=== PATIENT | female | born 1950 | race Caucasian/White ===

== ENCOUNTER → 2019-06-23 10:50 | Outpatient (BNVA) | payer MEDICARE, SELFPAY | PROVIDERS: PCP Nurse Practitioner Family; Visit Provider Nurse Practitioner | DX: Z76.89 Persons encountering health services in other specified circumstances (principal) | CPT/HCPCS: 99213 ==

== ENCOUNTER → 2019-09-13 12:46 | Outpatient (BNVA) | payer MEDICARE, SELFPAY | PROVIDERS: PCP Nurse Practitioner Family; Visit Provider Anesthesiology | DX: G89.29 Other chronic pain (principal); M54.6 Pain in thoracic spine; Z79.891 Long term (current) use of opiate analgesic | CPT/HCPCS: 99213; 99214 ==

== ENCOUNTER → 2019-09-15 15:05 | Outpatient (BNVA) | payer MEDICARE, SELFPAY | PROVIDERS: PCP Nurse Practitioner Family; Visit Provider Nurse Practitioner Family | DX: I10 Essential (primary) hypertension (principal); M25.561 Pain in right knee; M81.0 Age-related osteoporosis without current pathological fracture; S70.11XA Contusion of right thigh, initial encounter; X58.XXXA Exposure to other specified factors, initial encounter | CPT/HCPCS: 73562; 80053; 80061; 84443; 85025 ==

== ENCOUNTER → 2019-12-06 13:00 | Outpatient (BNVA) | payer MEDICARE, SELFPAY | PROVIDERS: PCP Nurse Practitioner Family; Visit Provider Nurse Practitioner Family | DX: M54.6 Pain in thoracic spine (principal) | CPT/HCPCS: 72072 ==

== ENCOUNTER → 2019-12-20 10:49 | Outpatient (BNVA) | payer MEDICARE, SELFPAY | PROVIDERS: PCP Nurse Practitioner Family; Visit Provider Nurse Practitioner Family | DX: R07.81 Pleurodynia (principal) | CPT/HCPCS: 71100 ==

== ENCOUNTER → 2020-01-19 15:17 | Outpatient (BNVA) | payer MEDICARE, SELFPAY | PROVIDERS: PCP Nurse Practitioner Family; Visit Provider Nurse Practitioner Family | DX: M25.561 Pain in right knee (principal); G89.29 Other chronic pain; M81.8 Other osteoporosis without current pathological fracture | CPT/HCPCS: 73562 ==

== ENCOUNTER 2020-01-20 13:11 | Outpatient (CLI) | payer MEDICARE, SELFPAY ==
--- NOTE | 2020-01-20 14:00 | MM_ITS ---
WS: [id number] BILATERAL DIGITAL SCREENING MAMMOGRAPHY WITH CAD CLINICAL INFORMATION: screening mammo HISTORY: Screening mammogram. No current complaints. COMPARISON: 4 17,015 TECHNIQUE: Bilateral CC and MLO views. FINDINGS: Scattered fibroglandular densities bilaterally. No suspicious focal mass, asymmetry, calcifications, or architectural distortion. No evidence of malignancy. A few stable intramammary lymph nodes. Vascul ar calcification. MM/[place] [id number] IMPRESSION: BI-RADS: 2-Benign FOLLOW UP: 1 Year Follow-up Recommend return to annual screening mammography.
--- NOTE | 2020-01-20 14:16 | XR_ITS ---
WS: [id number] Bone mineral density performed on a Training Amigo[employer], 01/20/2020 Clinical data: osteoporosis Comparison study: DEXA scan, 04/21/2017. Findings: The first 4 lumbar vertebral bodies demonstrated the bone mineral density of 0.936 g/cm2 for a young adult T score of -2.0. Measurement of the left hip reveals a bone mineral density of 0.680 g/cm2 with a young adult T score of -2.6. Measurement of the right hip reveals the bone mineral density of 0.655 g/cm2 for young adult T score of -2.8. XR/XR DEXA axial skeleton* [id number] Impression: 1. Osteopenia of the lumbar spine with slight increase in bone mineral density compared to prior study. 2. Osteoporosis of the left hip with slight improvement in bone mineral density from prior study. 3. Osteoporosis of the right hip with slight improvement in bone mineral densit y from the prior study.
== END 2020-01-20 13:12 | disposition home or self-care (01) ==
PROVIDERS: PCP Nurse Practitioner Family; Visit Provider Nurse Practitioner Family
DX: Z12.31 Encounter for screening mammogram for malignant neoplasm of breast (principal); M81.0 Age-related osteoporosis without current pathological fracture; M85.89 Other specified disorders of bone density and structure, multiple sites
CPT/HCPCS: 77067; 77080

== ENCOUNTER → 2020-02-08 08:10 | Outpatient (BNVA) | payer MEDICARE, SELFPAY | PROVIDERS: PCP Nurse Practitioner Family; Visit Provider Anesthesiology | DX: G89.29 Other chronic pain (principal); M54.6 Pain in thoracic spine; Z79.891 Long term (current) use of opiate analgesic | CPT/HCPCS: 99212; 99214 ==

== ENCOUNTER → 2020-02-09 10:36 | Outpatient (BNVA) | payer MEDICARE, SELFPAY | PROVIDERS: PCP Nurse Practitioner Family; Referring Provider Nurse Practitioner Family; Visit Provider Specialist | DX: M25.561 Pain in right knee (principal); G89.29 Other chronic pain | CPT/HCPCS: 73560; 73565 ==

== ENCOUNTER → 2020-02-14 14:39 | Outpatient (BNVA) | payer MEDICARE, SELFPAY | PROVIDERS: PCP Nurse Practitioner Family; Referring Provider Specialist; Visit Provider Internal Medicine | DX: E04.1 Nontoxic single thyroid nodule (principal); I10 Essential (primary) hypertension; M81.0 Age-related osteoporosis without current pathological fracture | CPT/HCPCS: 99204 ==

== ENCOUNTER 2020-02-15 06:00 | Outpatient (RCR) | payer MEDICARE, SELFPAY | END 2020-02-27 23:59 | disposition home or self-care (01) | LOC: TPT 06:00 | PROVIDERS: PCP Nurse Practitioner Family; Referring Provider Specialist; Visit Provider Specialist | DX: M17.11 Unilateral primary osteoarthritis, right knee (principal) | CPT/HCPCS: 97161 ==

== ENCOUNTER 2020-03-13 13:39 | Outpatient (CLI) | payer MEDICARE, SELFPAY ==
--- NOTE | 2020-03-13 14:15 | US_ITS ---
WS: [id number] ULTRASOUND THYROID TECHNIQUE: Ultrasound of the thyroid. CLINICAL INFORMATION: thyroid nodule COMPARISON: FINDINGS: Thyroid: Right and left thyroid lobes are normal in size and echotexture. Multiple hypoechoic thyroid nodules similar in appearance to November 05, 2017. Largest left thyroid nodule measures 3.0 x 2.2 x 1 .8 cm this is similar in appearance to Right thyroid lobe: 3.8 cm x 1.8 cm x 1.8 cm Left thyroid lobe: 4.7 cm x 2.3 cm x 2.9 cm. Isthmus: 0.4 mm. Cervical lymphadenopathy: None. US/US thyroid [id number] IMPRESSION: 1. Again seen are multiple hypoechoic thyroid nodules similar to 2018. 2. Largest left thyroid nodule measures 3.0 x 2.2 x 1.8 cm this is similar in appearance to
== END 2020-03-13 13:40 | disposition home or self-care (01) ==
LOC: RAD 13:44
PROVIDERS: PCP Nurse Practitioner Family; Visit Provider Internal Medicine
DX: E04.2 Nontoxic multinodular goiter (principal)
CPT/HCPCS: 76536

== ENCOUNTER → 2020-05-29 13:17 | Outpatient (BNVA) | payer MEDICARE, SELFPAY | PROVIDERS: PCP Nurse Practitioner Family; Visit Provider Anesthesiology | DX: G89.29 Other chronic pain (principal); M54.6 Pain in thoracic spine; M25.561 Pain in right knee; Z79.891 Long term (current) use of opiate analgesic | CPT/HCPCS: 99214 ==

== ENCOUNTER → 2020-08-31 14:34 | Outpatient (BNVA) | payer MEDICARE, SELFPAY | PROVIDERS: PCP Nurse Practitioner Family; Visit Provider Nurse Practitioner Family | DX: J02.9 Acute pharyngitis, unspecified (principal); R50.9 Fever, unspecified; J32.9 Chronic sinusitis, unspecified; L25.9 Unspecified contact dermatitis, unspecified cause; K52.9 Noninfective gastroenteritis and colitis, unspecified; Z68.27 Body mass index [BMI] 27.0-27.9, adult | CPT/HCPCS: 85025; 87400; 87880 ==

== ENCOUNTER → 2020-10-11 09:13 | Outpatient (BNVA) | payer MEDICARE, MEDICAID, SELFPAY | PROVIDERS: PCP Nurse Practitioner Family; Visit Provider Nurse Practitioner | DX: G89.29 Other chronic pain (principal); M25.561 Pain in right knee; M54.6 Pain in thoracic spine; Z79.891 Long term (current) use of opiate analgesic | CPT/HCPCS: 99212 ==

== ENCOUNTER 2020-11-16 09:31 | Emergency (ER) | payer MEDICARE, MEDICAID, SELFPAY ==
[2020-11-16 09:50] VITALS: BP 131/70; PULSE 60; RESP 19; TEMP 37.1; O2SAT 94
[2020-11-16 10:07] VITALS: BP 123/84; PULSE 71; RESP 16; O2SAT 97
--- NOTE | 2020-11-16 10:29 | US_ITS ---
WS: [id number] ULTRASOUND ABDOMEN LIMITED CLINICAL INFORMATION: RUQ abd PAIN COMPARISON: None. FINDINGS: Liver Size: Mild hepatosplenomegaly Craniocaudal length: 15.0 cm. Echogenicity: Diffuse fatty infiltration Surface nodularity: None. Mass (size and location): None. Bile ducts Intrahepatic ducts: Normal. Common bile duct diameter: 0.6 cm. Gallbladder Normal. Gallstones: None. Gallbladder sludge: None. Gallbladder wall thickening: None. Pericholecystic fluid: None. Sonographic Rivera sign: Absent. Pancreas Normal as visualized. Right kidney: Normal. Hydronephrosis: None. Size: 9.3 cm x 4.8 cm x 4.2 cm. Abdominal aorta and IVC Visualized portions are normal. Ascites: None. US/US gall bladder [id number] IMPRESSION: 1. Hepatomegaly with diffuse fatty infiltration. 2. Normal gallbladder. 3. No hydronephrosis in right kidney. 4. Normal common bile duct.
--- NOTE | 2020-11-16 10:32 | ECG_ITS ---
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 Measurements Intervals [place] Rate: 54 P: -19 WA: 135 QRS: -18 QRSD: 91 T: 41 QT: 397 QTc: 380 Interpretive Statements SINUS BRADYCARDIA Compared to ECG 07/22/2014 22:08:40 No significant changes Electronically Signed On 11-16-2020 19:31:49 CDT by Lucy Alexis M.D. [email or web address]
--- NOTE | 2020-11-16 10:43 | ED_ITS ---
HPI - Back Pain/Injury General: Chief Complaint: Back Pain/Injury Stated Complaint: Pain in upper right abd, pain in shoulder blade Time Seen by Provider: 11/16/20 10:14 Source: patient Mode of arrival: ambulatory History of Present Illness: HPI Narrative: RUQ/RIGHT MID THORACIC PAIN Onset (ago): day(s) (4 days) Timing: intermittent Associated symptoms: Reports abdominal pain (RUQ); Deny nausea Review of Systems General: Reports: 10 or more systems reviewed and unremarkable except in HPI and below GI: Reports: abdominal pain (RUQ); Denies: nausea Musc: Reports: back pain [facility] ED PFSH: Medical History Chronic mitral valve regurgitation Chronic thoracic back pain Encounter for long-term use of opiate analgesic Essential (primary) hypertension Generalized epilepsy History of hepatitis Opioid contract exists Osteoporosis Pleurodynia Surgical History History of tonsillectomy and adenoidectomy S/p bilateral carpal tunnel release Status post wrist surgery left wrist 2008 Family History Mother Hypertension Osteoporosis Social History Smoking and tobacco status: never smoked Second hand smoke exposure: No Alcohol intake: never Caregiver/support person: No Lives independently: Yes Marital status: / service: No Current occupational status: retired History of recent travel: No Current gender identity: Female Physical Exam GI: COMMON NORMALS: Soft to palpation INSPECTION: Yes normal to inspection AUSCULTATION: Yes normoactive bowel sounds PALPATION: Yes Soft to palpation and Yes Tenderness to palpation present (GI) Details: RUQ Back/Pelvis: BACK IMAGE (FEMALE): 1. R flank tenderness Course ED course: Pt presents to ER with complaints of RUQ/R flank pain for 4 days. It is cyclic and begins in morning after waking and lasts until 4pm. It is better when she lays down to sleep. Gallbladder still present and food does seem to worsen her symptoms. We will do GB US and labs. Denies pain meds. Reevaluation(s): Reevaluation #1: Pt US is negative for gallstones or blockages. Amylase and lipase as well as WBC are normal. Pt urine is clean with no RBCs. Due to her hx of thoracic back pain it is likely this is musculosketelal. We will proceed with DC with muscle relaxers and steroids. Return for any worsening in pain. Time: 13:49 Vital Signs: Vital signs: Vital Signs Temperature 98.8 F 11/16/20 09:50 Pulse Rate 60 11/16/20 12:40 Respiratory Rate 16 11/16/20 12:40 Blood Pressure 117/67 11/16/20 12:40 Pulse Oximetry 96 11/16/20 12:40 MDM - Back Pain/Injury Lab Data: Labs: Lab Results 11/16/20 11/16/20 11/16/20 Range/Units 10:54 10:54 10:54 WBC 9.6 (4.0-10.0) 10^3/ uL RBC 4.72 (4.1-5.3) 10^6/u L Hgb 14.4 (11.5-15.3) g/dL Hct 44.2 (37.0-47.0) % MCV 93.6 (81-99) fl MCH 30.5 (28.0-34.0) pg MCHC 32.6 (30.0-36.0) g/dL RDW 12.9 (12.1-15.1) % Plt Count 286 (130-400) 10^3/c mm MPV 10.4 (7.4-10.4) fL Neut % (Auto) 68.1 % Lymph % (Auto) 20.7 % [place] % (Auto) 8.9 % Eos % (Auto) 1.0 % Baso % (Auto) 0.9 % Neut # (Auto) 6.53 (1.8-7.7) 10^3/u L Lymph # (Auto) 2.0 (0.8-4.8) 10^3/u L [place] # (Auto) 0.9 (0.2-0.9) 10^3/u L Eos # (Auto) 0.1 (0.0-0.8) 10^3/u L Baso # (Auto) 0.1 (0.0-0.1) 10^3/u L Nucleated RBC % (a uto) 0 % Nucleated RBCs # 0.0 /100WBC Sodium 138 (136-145) mmol/L Potassium 4.8 (3.5-5.1) mmol/L Chloride 103 (98-107) mmol/L Carbon Dioxide 22 (22-29) mmol/L Anion Gap 17.8 (5-19) BUN 26 H (8-23) mg/dL Creatinine 0.8 (0.5-0.9) mg/dL GFR Calculation Not Reportable Glucose 95 (65-115) mg/dL Calculated Osmolal ity 291 (285-295) mOsm/k g Calcium 9.6 (8.5-10.5) mg/dL Total Bilirubin 0.4 (0.15-1.2) mg/dL AST 17 (0-32) U/L ALT 20 (0-33) U/L Alkaline Phosphata se 75 (35-105) IU/L Total Protein 7.5 (6.6-8.7) g/dL Albumin 4.2 (3.5-5.2) g/dL Globulin 3.3 (1.3-4.6) g/dL Amylase 51 (28-100) U/L Lipase 34 (13-60) U/L Urine Color (Yellow) Urine Appearance (CLEAR) Urine pH (5-7) Ur Specific Gravit y (1.005-1.030) Urine Protein (Negative) Urine Glucose (UA) (Normal) Urine Ketones (Negative) Urine Blood (Negative) Urine Nitrate (Negative) Urine Bilirubin (Negative) Urine Urobilinogen (Negative) mg/dL Ur Leukocyte Brooke ase (Negative) 11/16/20 Range/Units 12:23 WBC (4.0-10.0) 10^3/ uL RBC (4.1-5.3) 10^6/u L Hgb (11.5-15.3) g/dL Hct (37.0-47.0) % MCV (81-99) fl MCH (28.0-34.0) pg MCHC (30.0-36.0) g/dL RDW (12.1-15.1) % Plt Count (130-400) 10^3/c mm MPV (7.4-10.4) fL Neut % (Auto) % Lymph % (Auto) % [place] % (Auto) % Eos % (Auto) % Baso % (Auto) % Neut # (Auto) (1.8-7.7) 10^3/u L Lymph # (Auto) (0.8-4.8) 10^3/u L [place] # (Auto) (0.2-0.9) 10^3/u L Eos # (Auto) (0.0-0.8) 10^3/u L Baso # (Auto) (0.0-0.1) 10^3/u L Nucleated RBC % (a uto) % Nucleated RBCs # /100WBC Sodium (136-145) mmol/L Potassium (3.5-5.1) mmol/L Chloride (98-107) mmol/L Carbon Dioxide (22-29) mmol/L Anion Gap (5-19) BUN (8-23) mg/dL Creatinine (0.5-0.9) mg/dL GFR Calculation Glucose (65-115) mg/dL Calculated Osmolal ity (285-295) mOsm/k g Calcium (8.5-10.5) mg/dL Total Bilirubin (0.15-1.2) mg/dL AST (0-32) U/L ALT (0-33) U/L Alkaline Phosphata se (35-105) IU/L Total Protein (6.6-8.7) g/dL Albumin (3.5-5.2) g/dL Globulin (1.3-4.6) g/dL Amylase (28-100) U/L Lipase (13-60) U/L Urine Color Yellow (Yellow) Urine Appearance Clear (CLEAR) Urine pH 5 (5-7) Ur Specific Gravit y 1.015 (1.005-1.030) Urine Protein Neg (Negative) Urine Glucose (UA) Norm (Normal) Urine Ketones Negative (Negative) Urine Blood Neg (Negative) Urine Nitrate Negative (Negative) Urine Bilirubin Neg (Negative) Urine Urobilinogen Norm (Negative) mg/dL Ur Leukocyte Brooke ase Negative (Negative) Imaging Data^: US: Radiologist's impression: [address] [address] Ultrasound Report Signed Patient: Rukhsana Hernandez Unit #: [id number] : 1950 Age/Sex: 70 / F ADM Date: 11/16/20 Loc: ER Room/Bed: Attending Dr: Ordering Provider/Ordering MD: Juliet Melgar NP Date of Service: 11/16/20 Procedure(s): US gall bladder [id number] Accession Number(s): [id number] Report Number: [id number] WS: [id number] ULTRASOUND ABDOMEN LIMITED CLINICAL INFORMATION: RUQ abd PAIN COMPARISON: None. FINDINGS: Liver Size: Mild hepatosplenomegaly Craniocaudal length: 15.0 cm. Echogenicity: Diffuse fatty infiltration Surface nodularity: None. Mass (size and location): None. Bile ducts Intrahepatic ducts: Normal. Common bile duct diameter: 0.6 cm. Gallbladder Normal. Gallstones: None. Gallbladder sludge: None. Gallbladder wall thickening: None. Pericholecystic fluid: None. Sonographic Rivera sign: Absent. Pancreas Normal as visualized. Right kidney: Normal. Hydronephrosis: None. Size: 9.3 cm x 4.8 cm x 4.2 cm. Abdominal aorta and IVC Visualized portions are normal. Ascites: None. US/US gall bladder [id number] IMPRESSION: 1. Hepatomegaly with diffuse fatty infiltration. 2. Normal gallbladder. 3. No hydronephrosis in right kidney. 4. Normal common bile duct. Dictated By: Corwin Castro MD Signed By: Corwin Castro MD Signed Date/Time: 11/16/20 1146 DD/ 1142 Discharge Plan Discharge Condition: Stable Prescriptions: New methylprednisolone [Methylpred DP] 4 mg tablets,dose pack See Rx Instructions .ROUTE .COMPLEX Qty: 21 RF: 0 diclofenac potassium 50 mg tablet 50 mg PO DAILY Qty: 20 RF: 0 No Action diclofenac sodium [Voltaren] 1 % gel 4 gm TOPICAL QID Qty: 100 RF: 0 potassium chloride 20 mEq tablet extended release 20 meq PO DAILY RF: 0 [id number] Tablet 1 tab PO DAILY RF: 0 calcium carbonate [Antacid (calcium carbonate)] 200 mg calcium (500 mg) tablet,chewable 200 mg PO TID RF: 0 aspirin [Adult Low Dose Aspirin] 81 mg tablet,delayed release (DR/EC) 81 mg PO ONCE RF: 0 omeprazole 20 mg capsule,delayed release(DR/EC) 20 mg PO ONCE RF: 0 multivitamin Capsule 1 cap PO QAM RF: 0 magnesium 250 mg tablet 250 mg PO .1 day RF: 0 dimenhydrinate 50 mg tablet 50 mg PO .1 day RF: 0 tizanidine 4 mg tablet 4 mg PO TID PRNRF: 0 meclizine 25 mg tablet 25 mg PO BID PRN (Reason: dizziness) Qty: 30 RF: 0 triamcinolone acetonide 0.1 % cream 1 applic TOPICAL BID 14 Days Qty: 80 RF: 1 ondansetron 4 mg tablet,disintegrating 4 mg PO Q6H PRN (Reason: nausea and vomiting) Qty: 20 RF: 0 hydrocodone-acetaminophen 7.5-325 mg tablet 1 tab PO BID PRN (Reason: pain) 30 Days Qty: 60 RF: 0 alendronate 70 mg tablet See Rx Instructions .ROUTE .COMPLEX Qty: 4 RF: 4 amlodipine 5 mg tablet See Rx Instructions .ROUTE .COMPLEX Qty: 30 RF: 2 meloxicam 15 mg tablet See Rx Instructions .ROUTE .COMPLEX Qty: 30 RF: 2 cefdinir 300 mg capsule 300 mg PO BID Qty: 14 RF: 0 hydrocodone-acetaminophen 7.5-325 mg tablet 1 tab PO BID PRN (Reason: pain) 23 Days Qty: 46 RF: 0 Referrals: Kaye Pope FNP [Primary Care Provider] - Discharge Diet: Usual diet Discharge Activity: Increase activity as tolerated Activity Restrictions/Additional Instructions: Return to ER with any new or worsening symptoms. Coding Level of Care Code ED [employer]uling [employer] for Meghna Byrne Exam Problem Focused
[2020-11-16] MEDS: ondansetron 2 mg/ML SDV 2 mL 4 MG IVP (10:55)
[2020-11-16] MEDS: ketorolac 30 mg/mL INJ IVP (10:55)
[2020-11-16 11:26] LABS: Amylase 51 U/L (28-100); Lipase 34 U/L (13-60)
[2020-11-16 12:40] VITALS: BP 117/67; PULSE 60; RESP 16; O2SAT 96
[2020-11-16 12:52] LABS: Add Urine Microscopic? NO; Charge for UA Resulting for Rev
[2020-11-16 12:59] LABS: Basophils # 0.1 10^3/uL (0.0-0.1); Basophils % 0.9 %; Eosinophils # 0.1 10^3/uL (0.0-0.8); Hematocrit 44.2 % (37.0-47.0); Hemoglobin 14.4 g/dL (11.5-15.3); Lymphocytes % 20.7 %; Mean Corpuscular HGB Conc 32.6 g/dL (30.0-36.0); Mean Corpuscular Hemoglobin 30.5 pg (28.0-34.0); Mean Corpuscular Volume 93.6 fl (81-99); Mean Platelet Volume 10.4 fL (7.4-10.4); Monocytes # 0.9 10^3/uL (0.2-0.9); Monocytes % 8.9 %; Neutrophils # 6.53 10^3/uL (1.8-7.7); Neutrophils % 68.1 %; Nucleated Red Blood Cells % 0 %; Platelet Count 286 10^3/cmm (130-400); Red Blood Count 4.72 10^6/uL (4.1-5.3); Red Cell Distribution Width 12.9 % (12.1-15.1); White Blood Count 9.6 10^3/uL (4.0-10.0)
[2020-11-16 13:17] LABS: Alanine Aminotransferase 20 U/L (0-33); Albumin Level 4.2 g/dL (3.5-5.2); Alkaline Phosphatase 75 IU/L (35-105); Anion Gap 17.8 (5-19); Aspartate Amino Transferase 17 U/L (0-32); Blood Urea Nitrogen 26 mg/dL (8-23); Calcium 9.6 mg/dL (8.5-10.5); Carbon Dioxide 22 mmol/L (22-29); Chloride 103 mmol/L (98-107); Globulin 3.3 g/dL (1.3-4.6); Glucose 95 mg/dL (65-115); Osmolality Calculated 291 mOsm/kg (285-295); Potassium 4.8 mmol/L (3.5-5.1); Sodium 138 mmol/L (136-145); Total Bilirubin 0.4 mg/dL (0.15-1.2); Total Protein 7.5 g/dL (6.6-8.7)
[2020-11-16 13:31] LABS: Bilirubin Urine Neg (Negative); Blood Urine Neg (Negative); Glucose Urine UA Norm (Normal); Ketones Urine Negative (Negative); Leukocyte Esterase Urine Negative (Negative); Nitrate Urine Negative (Negative); Protein Urine Neg (Negative); Specific Gravity, Urine 1.015 (1.005-1.030); Urine Appearance Clear (CLEAR); Urine Color Yellow (Yellow); Urobilinogen Urine Norm (Negative); pH Urine 5 (5-7)
[2020-11-16 14:05] VITALS: BP 123/73; PULSE 59; RESP 16; O2SAT 97
== END 2020-11-16 14:07 ==
PROVIDERS: Emergency Provider Nurse Practitioner Family; PCP Nurse Practitioner Family
DX: R10.9 Unspecified abdominal pain (principal); M25.511 Pain in right shoulder; Z79.82 Long term (current) use of aspirin; I10 Essential (primary) hypertension
CPT/HCPCS: 76705; 80053; 81003; 82150; 83690; 85025; 93005; 96374; 96375; 99283; J1885; J2405

== ENCOUNTER → 2020-12-05 14:42 | Outpatient (BNVA) | payer MEDICARE, MEDICAID, SELFPAY | PROVIDERS: PCP Nurse Practitioner Family; Visit Provider Anesthesiology | DX: G89.29 Other chronic pain (principal); M54.6 Pain in thoracic spine; M25.561 Pain in right knee; Z79.891 Long term (current) use of opiate analgesic | CPT/HCPCS: 99214 ==

== ENCOUNTER 2021-01-21 14:41 | Outpatient (CLI) | payer MEDICARE, MEDICAID, SELFPAY ==
--- NOTE | 2021-01-21 15:00 | US_ITS ---
WS: [id number] THYROID ULTRASOUND HISTORY: thyroid nodule COMPARISON: 03/13/2020 and 11/05/2017 Right lobe: 1.7 cm x 1.5 cm x 4.2 cm (w x ap x l). Volume: 5.6 cm3. Normal size gland. There are a few scattered subcentimeter hypoechoic nodules. Similar to the prior s tudy. No increased vascularity. No adenopathy. Left lobe: 2.3 cm x 2.6 cm x 3.3 cm (w x ap x l). Volume: 10.2 cm3. Enlarged gland with a hyperechoic nodule which is ill-defined in the mid to lower pole of the thyroid . This nodule measures 1.9 x 1.5 x 3.3 cm and is hyperechoic. As per history this nodule has been pre viously biopsied and was benign. Isthmus: 0.3 cm. US/US thyroid [id number] IMPRESSION: 1. Hyperechoic LEFT thyroid nodule has not significantly increased in size sin ce 03/13/2020. By history this nodule has undergone a prior biopsy and was jaswant gn. 2. No enlarging or suspicious nodules.
== END 2021-01-21 14:42 | disposition home or self-care (01) ==
LOC: RAD 14:49
PROVIDERS: PCP Nurse Practitioner Family; Visit Provider Internal Medicine
DX: E04.1 Nontoxic single thyroid nodule (principal)
CPT/HCPCS: 76536

== ENCOUNTER → 2021-01-30 09:54 | Outpatient (BNVA) | payer MEDICARE, MEDICAID, SELFPAY | PROVIDERS: PCP Nurse Practitioner Family; Visit Provider Anesthesiology | DX: G89.29 Other chronic pain (principal); M54.6 Pain in thoracic spine; Z79.891 Long term (current) use of opiate analgesic | CPT/HCPCS: 99213 ==

== ENCOUNTER → 2021-02-15 09:48 | Outpatient (BNVA) | payer MEDICARE, MEDICAID, SELFPAY | PROVIDERS: PCP Nurse Practitioner Family; Visit Provider Internal Medicine | DX: E04.1 Nontoxic single thyroid nodule (principal); M81.0 Age-related osteoporosis without current pathological fracture | CPT/HCPCS: 99213 ==

== ENCOUNTER → 2021-03-06 11:47 | Outpatient (BNVA) | payer MEDICARE, MEDICAID, SELFPAY | PROVIDERS: PCP Nurse Practitioner Family; Visit Provider Family Medicine | DX: M25.561 Pain in right knee (principal); I10 Essential (primary) hypertension; K21.9 Gastro-esophageal reflux disease without esophagitis; M54.6 Pain in thoracic spine; Z23 Encounter for immunization | CPT/HCPCS: 80053; 80061; 84443; 85025 ==

== ENCOUNTER → 2021-04-08 11:50 | Outpatient (BNVA) | payer MEDICARE, MEDICAID, SELFPAY | PROVIDERS: PCP Nurse Practitioner Family; Visit Provider Nurse Practitioner Family | DX: M25.511 Pain in right shoulder (principal); M19.011 Primary osteoarthritis, right shoulder | CPT/HCPCS: 73030 ==

== ENCOUNTER 2021-06-06 10:09 | Outpatient (CLI) | payer MEDICARE, MEDICAID, SELFPAY ==
--- NOTE | 2021-06-06 10:20 | MR_ITS ---
WS: [id number] MRI RIGHT SHOULDER NONCONTRAST TECHNIQUE: Sagittal T2, coronal T1, T2 and proton density imaging. Axial gradient PDE imaging. CLINICAL INFORMATION: M25.511 - Pain in right shoulder COMPARISON: None. FINDINGS: Moderate degenerative arthritis AC joint with hypertrophic spurring. Mild downsloping acromion with m ild narrowing of the subacromial space. Impingement on the distal supraspinatus. Fluid and edema in t he AC joint with synovial thickening. Chronic thinning of the distal supraspinatus with tendinopathy. Normal infraspinatus. Small amount of subacromial/subdeltoid fluid. Normal teres minor. Normal subsc apularis. Normal biceps tendon in the bicipital groove. Mild degenerative fraying of the glenoid labrum. Hypert rophic changes at the greater tuberosity. T2 hyperintensity with irregularity involving the intra-art icular biceps tendon compatible with chronic partial tear with tendinopathy MR/MR shoulder RT wo con* [id number] IMPRESSION: 1. Moderate degenerative arthritis AC joint with mild edema and synovial thick ening. Mild downsloping acromion impinges on the distal supraspinatus. 2. Chronic thinning of the supraspinatus with tendinopathy. 3. Rotator cuff is intact. No high-grade tears 4. T2 hyperintensity with irregularity involving the intra-articular biceps te ndon compatible with chronic partial tear with tendinopathy 5. Normal biceps tendon in the bicipital groove. 6. Degenerative fraying of the glenoid labrum.
== END 2021-06-06 10:10 | disposition home or self-care (01) ==
LOC: RAD 10:13
PROVIDERS: PCP Family Medicine; Visit Provider Nurse Practitioner Family
DX: M19.011 Primary osteoarthritis, right shoulder (principal); R60.0 Localized edema
CPT/HCPCS: 73221

== ENCOUNTER → 2021-08-14 07:48 | Outpatient (BNVA) | payer MEDICARE, MEDICAID, SELFPAY | PROVIDERS: PCP Family Medicine; Referring Provider Nurse Practitioner Family; Visit Provider Specialist | DX: M75.81 Other shoulder lesions, right shoulder (principal); M19.011 Primary osteoarthritis, right shoulder; M25.511 Pain in right shoulder | CPT/HCPCS: 73030; 99213 ==

== ENCOUNTER 2021-11-11 09:36 | Emergency (ER) | payer MEDICARE, MEDICAID, SELFPAY ==
[2021-11-11] VITALS (7 sets, daily range): BP systolic 134–173; BP diastolic 73–103; PULSE 83–97; RESP 12–20; O2SAT 93–97; BMI 26.5
[2021-11-11 10:05] LABS: Basophils % 0.6 %; Hemoglobin 13.3 g/dL (11.5-15.3); Lymphocytes # 0.3 10^3/uL (0.8-4.8); Lymphocytes % 9.3 %; Mean Corpuscular HGB Conc 32.4 g/dL (30.0-36.0); Mean Corpuscular Hemoglobin 30.1 pg (28.0-34.0); Mean Corpuscular Volume 92.8 fl (81-99); Mean Platelet Volume 10.4 fL (7.4-10.4); Monocytes # 0.8 10^3/uL (0.2-0.9); Monocytes % 22.7 %; Neutrophils % 66.8 %; Nucleated Red Blood Cells % 0 %; Platelet Count 165 10^3/cmm (130-400); Red Blood Count 4.42 10^6/uL (4.1-5.3); Red Cell Distribution Width 12.7 % (12.1-15.1); White Blood Count 3.4 10^3/uL (4.0-10.0)
[2021-11-11 10:29] LABS: Alanine Aminotransferase 27 U/L (0-33); Albumin Level 3.9 g/dL (3.5-5.2); Alkaline Phosphatase 64 U/L (35-105); Anion Gap 18.3 (5-19); Aspartate Amino Transferase 26 U/L (0-32); Blood Urea Nitrogen 10 mg/dL (8-23); Calcium 7.8 mg/dL (8.5-10.5); Carbon Dioxide 21 mmol/L (22-29); Chloride 105 mmol/L (98-107); Globulin 2.5 g/dL (1.3-4.6); Glucose 103 mg/dL (65-115); Osmolality Calculated 291 mOsm/kg (285-295); Potassium 3.3 mmol/L (3.5-5.1); Sodium 141 mmol/L (136-145); Total Bilirubin 0.2 mg/dL (0.15-1.2); Total Protein 6.4 g/dL (6.6-8.7)
--- NOTE | 2021-11-11 10:48 | XR_ITS ---
WS: [id number] Exam: XR chest 1V portable [id number] Date/Time of Exam: 11/11/2021 10:50 AM Reason For Exam: dyspnea/cough Comparison 04/30/2015. The lungs are clear and fully expanded. Normal cardiomediastinal silhouette. No pleural effusions. Re gional bony elements are intact. XR/XR chest 1V portable [id number] IMPRESSION: 1. No acute cardiopulmonary finding.
[2021-11-11 11:43] LABS: Adenovirus Not Detected (NOT DETECT); Chlamydia Pneumoniae Not Detected (NOT DETECT); Coronavirus 229E,HKU1,NL63,OC4 Not Detected (NOT DETECT); Human Metapneumovirus Not Detected (NOT DETECT); Human Rhinovirus/Enterovirus Not Detected (NOT DETECT); Influenza A Not Detected (NOT DETECT); Influenza A H1 Not Detected (NOT DETECT); Influenza A H1-2009 Not Detected (NOT DETECT); Influenza A H3 Not Detected (NOT DETECT); Influenza B Not Detected (NOT DETECT); Mycoplasma Pneumoniae Not Detected (NOT DETECT); Parainfluenza Virus Type 1 Not Detected (NOT DETECT); Parainfluenza Virus Type 2 Not Detected (NOT DETECT); Parainfluenza Virus Type 3 Not Detected (NOT DETECT); Parainfluenza Virus Type 4 Not Detected (NOT DETECT); Respiratory Syncytial Virus A Not Detected (NOT DETECT); Respiratory Syncytial Virus B Not Detected (NOT DETECT); SARS-COV-2 Detected (NOT DETECT)
--- NOTE | 2021-11-11 11:53 | ED_ITS ---
HPI - General Adult General: Chief complaint: General Medical Stated complaint: FLU LIKE SYMPTOMS Time Seen by Provider: 11/11/21 09:38 Source: patient Mode of arrival: EMS Limitations: no limitations History of Present Illness: 71-year-old female presents emergency room complaining of not feeling well symptoms began yesterday she got very weak she feels like she is not able to keep much down. Has had nausea and vomiting. Seem to be worse today she has a slight nonproductive cough as well. No charmaine rrhea. Generally feels like she has the flu denies dysuria and frequency no abdominal pain or chest pain. Onset (ago): day(s) (1) Severity: mild Relieving factors: none Exacerbating factors: none Associated symptoms: Reports decreased appetite, malaise, nausea, vomiting and weakness; Deny chest pain, confusion, cough, diaphoresis, dyspnea, fevers/chills, headache(s), rash, palpitations, seizures, short of breath or syncope Review of Systems Const: Reports: malaise; Denies: fever(s), chills, fatigue or diaphoresis ENMT: Denies: throat pain, ear or mastoid pain, nasal discharge or nasal congestion Card: Denies: chest pain, palpitations or syncope Resp: Denies: dyspnea GI: Reports: nausea and vomiting; Denies: abdominal pain : Denies: flank pain, difficulty voiding, dysuria, urinary frequency or urinary urgency Skin/Breast: Denies: rash Neuro: Denies: headache(s) or confusion PFSH ED PFSH: Medical History Chronic mitral valve regurgitation Chronic thoracic back pain Encounter for long-term use of opiate analgesic Essential (primary) hypertension Generalized epilepsy History of hepatitis Opioid contract exists Osteoporosis Pleurodynia Surgical History History of tonsillectomy and adenoidectomy S/p bilateral carpal tunnel release Status post wrist surgery left wrist 2007 Family History Mother Hypertension Osteoporosis Social History Smoking and tobacco status: never smoked Second hand smoke exposure: No Alcohol intake: never Caregiver/support person: No Lives independently: Yes Household members: none Marital status: / service: No Current occupational status: retired History of recent travel: No Current gender identity: Female Special flavia needs: No Physical Exam Const: GENERAL APPEARANCE: cooperative and comfortable ORIENTATION/CONSCIOUSNESS: Yes awake HENMT: COMMON NORMALS: normocephalic, atraumatic and hearing grossly normal bilaterally HEAD & SCALP: normocephalic and atraumatic Resp: COMMON NORMALS: normal respiratory effort, No retractions, No use of accessory muscles and clear to auscultation bilaterally AUSCULTATION: clear to auscultation bilaterally Cardio: COMMON NORMALS: regular rate, regular rhythm and No murmurs present (Cardio) RATE: regular rate RHYTHM: regular rhythm GI: COMMON NORMALS: Soft to palpation and No hepatosplenomegaly present AUSCULTATION: Yes normoactive bowel sounds PALPATION: Yes Soft to palpation, No Tenderness to palpation present (GI), No Guarding due to palpation present (GI) and Yes No hepatosplenomegaly present Extremity: COMMON NORMALS: normal to inspection, capillary refill normal, no clubbing, cyanosis or edema, no calf tenderness and no pedal edema Skin: COMMON NORMALS: no rashes or lesions noted GENERAL SKIN EXAM: no r ashes or lesions noted Course Vital Signs: Vital signs: Vital Signs Pulse Rate 93 11/11/21 12:00 Respiratory Rate 16 11/11/21 12:00 Blood Pressure 152/90 11/11/21 12:00 Pulse Oximetry 95 11/11/21 12:00 Oxygen Delivery Nd thod 11/11/21 12:00 [facility] - General Adult Medical Decision Making COVID-positive. Will offer pack Slo-Bid monitor oxygen sats at home. Lea ropriate for outpatient monitoring and treatment and monitoring. Medical Records I reviewed the patient's medical records. Lab Data I reviewed the patient's lab results. : 11/11/21 09:45 11/11/21 09:45 Radiology Impressions Chest X-Ray 11/11/21 10:48 IMPRESSION: 1. No acute cardiopulmonary finding. Laboratory Results WBC 3.4 10^3/uL (4.0-10.0) L 11/11/21 09:45 RBC 4.42 10^6/uL (4.1-5.3) 11/11/21 09:45 Hgb 13.3 g/dL (11.5-15.3) 11/11/21 09:45 Hct 41.0 % (37.0-47.0) 11/11/21 09:45 MCV 92.8 fl (81-99) 11/11/21 09:45 MCH 30.1 pg (28.0-34.0) 11/11/21 09:45 MCHC 32.4 g/dL (30.0-36.0) 11/11/21 09:45 RDW 12.7 % (12.1-15.1) 11/11/21 09:45 Plt Count 165 10^3/cmm (130-400) 11/11/21 09:45 MPV 10.4 fL (7.4-10.4) 11/11/21 09:45 Neut % (Auto) 66.8 % 11/11/21 09:45 Lymph % (Auto) 9.3 % 11/11/21 09:45 [place] % (Auto) 22.7 % 11/11/21 09:45 Eos % (Auto) 0.0 % 11/11/21 09:45 Baso % (Auto) 0.6 % 11/11/21 09:45 Neut # (Auto) 2.30 10^3/uL (1.8-7.7) 11/11/21 09:45 Lymph # (Auto) 0.3 10^3/uL (0.8-4.8) L 11/11/21 09:45 [place] # (Auto) 0.8 10^3/uL (0.2-0.9) 11/11/21 09:45 Eos # (Auto) 0.0 10^3/uL (0.0-0.8) 11/11/21 09:45 Baso # (Auto) 0.0 10^3/uL (0.0-0.1) 11/11/21 09:45 Nucleated RBC % (auto) 0 % 11/11/21 09:45 Nucleated RBCs # 0.0 /100WBC 11/11/21 09:45 Sodium 141 mmol/L (136-145) 11/11/21 09:45 Potassium 3.3 mmol/L (3.5-5.1) L 11/11/21 09:45 Chloride 105 mmol/L (98-107) 11/11/21 09:45 Carbon Dioxide 21 mmol/L (22-29) L 11/11/21 09:45 Anion Gap 18.3 (5-19) 11/11/21 09:45 BUN 10 mg/dL (8-23) 11/11/21 09:45 Creatinine 0.8 mg/dL (0.5-0.9) 11/11/21 09:45 GFR Calculation Not Reportable 11/11/21 09:45 Glucose 103 mg/dL (65-115) 11/11/21 09:45 Calculated Osmolality 291 mOsm/kg (285-295) 11/11/21 09:45 Calcium 7.8 mg/dL (8.5-10.5) L 11/11/21 09:45 Total Bilirubin 0.2 mg/dL (0.15-1.2) 11/11/21 09:45 AST 26 U/L (0-32) 11/11/21 09:45 ALT 27 U/L (0-33) 11/11/21 09:45 Alkaline Phosphatase 64 U/L (35-105) 11/11/21 09:45 Total Protein 6.4 g/dL (6.6-8.7) L 11/11/21 09:45 Albumin 3.9 g/dL (3.5-5.2) 11/11/21 09:45 Globulin 2.5 g/dL (1.3-4.6) 11/11/21 09:45 Nasal Influ A H1 2008 PCR Not detected (NOT DETECT) 11/11/21 09:45 Coronavirus 229E (PCR) Not detected (NOT DETECT) 11/11/21 09:45 Influenza A (H1) PCR Not detected (NOT DETECT) 11/11/21 09:45 Influenza A (H3) PCR Not detected (NOT DETECT) 11/11/21 09:45 Influenza Type A Ag Cancelled 11/11/21 09:45 Influenza Type A (PCR) Not detected (NOT DETECT) 11/11/21 09:45 Influenza Type B Ag Cancelled 11/11/21 09:45 Influenza Type B (PCR) Not detected (NOT DETECT) 11/11/21 09:45 SARS-CoV-2 (PCR) Detected (NOT DETECT) A 11/11/21 09:45 Discharge Plan Discharge Patient Disposition: Home Clinical Impression: COVID-19 Condition: Stable Prescriptions: New Paxlovid (EUA) 150 mg x 2- 100 mg tablet See Rx Instructions .ROUTE .COMPLEX Qty: 30 0RF Rx Instructions: orally per package directions No Action [id number] Tablet 1 tab PO DAILY multivitamin Capsule 1 cap PO QAM triamcinolone acetonide 0.1 % cream 1 applic TOPICAL BID 14 Days Qty: 80 1RF hydrocodone-acetaminophen 7.5-325 mg tablet 1 tab PO BID PRN (Reason: pain) 30 Days Qty: 60 0RF Rx Instructions: fill on or after 01/30/21 diclofenac sodium 1 % gel 4 g TOPICAL QID Qty: 100 3RF Rx Instructions: apply to single knee, ankle, foot; for foot includes sole/toes/top of foot magnesium 250 mg tablet 250 mg PO .1 day Qty: 30 5RF potassium chloride 20 mEq tablet extended release 20 meq PO DAILY Qty: 30 3RF ondansetron 4 mg tablet,disintegrating 4 mg translingual Q6H PRN (Reason: nausea and vomiting) Qty: 30 3RF cholecalciferol (vitamin D3) 125 mcg (5,000 unit) capsule 125 mcg PO DAILY Qty: 30 3RF zinc 50 mg tablet 50 mg PO DAILY Qty: 30 3RF tizanidine 4 mg capsule 4 mg PO TID PRN (Reason: muscle spasticity) Qty: 90 0RF diclofenac sodium [Voltaren Arthritis Pain] 1 % gel 4 g topical QID Qty: 100 0RF hydrocodone-acetaminophen 7.5-325 mg tablet 1 tab PO BID PRN (Reason: pain) 30 Days Qty: 60 0RF Rx Instructions: fill on or after 03/31/21 alendronate 70 mg tablet See Rx Instructions .ROUTE .COMPLEX Qty: 4 4RF Dose Instruction: TAKE ONE TABLET BY MOUTH WEEKLY Rx Instructions: TAKE ONE TABLET BY MOUTH WEEKLY omeprazole 20 mg capsule,delayed release(DR/EC) See Rx Instructions .ROUTE .COMPLEX Qty: 60 4RF Dose Instruction: TAKE TWO CAPSULES BY MOUTH ONCE DAILY Rx Instructions: TAKE TWO CAPSULES BY MOUTH ONCE DAILY amlodipine 5 mg tablet See Rx Instructions .ROUTE .COMPLEX Qty: 30 2RF Dose Instruction: TAKE ONE TABLET BY MOUTH DAILY Rx Instructions: TAKE ONE TABLET BY MOUTH DAILY meloxicam 15 mg tablet See Rx Instructions .ROUTE .COMPLEX Qty: 30 2RF Dose Instruction: TAKE ONE TABLET BY MOUTH DAILY Rx Instructions: TAKE ONE TABLET BY MOUTH DAILY Discharge Orders: Discharge ED (Routine); Ordered 11/11/21 Ordered By: Nathanael Aleman Referrals: Coleen Oh MD [Primary Care Provider] - Discharge Diet: Usual diet Discharge Activity: Increase activity as tolerated Patient Instructions: COVID-19 (Coronavirus Disease 2019) (ED), Opioid Safety Activity Restrictions/Additional Instructions: He does have positive for COVID-19. Recommend you self quarantine until advised that you can return to usual activities but health department. Start Paxlovid 1 twice daily for 5 days. Monitor home oxygen saturation if it is consistently below 92% while at rest return to the emergency room. Coding Level of Care Code ED [employer]al Services Host for Meghna Byrne Exam Detailed
[2021-11-11 11:55] LABS: Influenza A Not Detected (NOT DETECT); Influenza A H1 Not Detected (NOT DETECT); Influenza A H1-2009 Not Detected (NOT DETECT); Influenza A H3 Not Detected (NOT DETECT); Influenza B Not Detected (NOT DETECT); Results from Genmark
[2021-11-11] MEDS: ondansetron 2 mg/ML SDV 2 mL 4 MG IVP (12:10)
== END 2021-11-11 12:21 | disposition home or self-care (01) ==
PROVIDERS: Emergency Provider Family Medicine; PCP Family Medicine
DX: U07.1 COVID-19 (principal); I10 Essential (primary) hypertension
CPT/HCPCS: 71045; 80053; 85025; 87631; 87635; 96374; 99284; J2405

== ENCOUNTER 2021-12-18 06:00 | Outpatient (RCR) | payer MEDICARE, MEDICAID, SELFPAY | END 2021-12-27 23:59 | disposition home or self-care (01) | LOC: APT 06:00 | PROVIDERS: PCP Family Medicine; Visit Provider Anesthesiology Pain Medicine | DX: M54.6 Pain in thoracic spine (principal) | CPT/HCPCS: 97110; 97140; 97162 ==

== ENCOUNTER 2021-12-28 06:00 | Outpatient (RCR) | payer MEDICARE, MEDICAID, SELFPAY | END 2022-01-27 23:59 | disposition home or self-care (01) | LOC: APT 06:00 | PROVIDERS: PCP Family Medicine; Visit Provider Anesthesiology Pain Medicine | DX: M54.6 Pain in thoracic spine (principal) | CPT/HCPCS: 97110; 97140 ==

== ENCOUNTER → 2021-12-31 12:33 | Outpatient (BNVA) | payer MEDICARE, MEDICAID, SELFPAY | PROVIDERS: PCP Family Medicine; Visit Provider Nurse Practitioner Family | DX: M81.0 Age-related osteoporosis without current pathological fracture (principal); I10 Essential (primary) hypertension; M54.6 Pain in thoracic spine; G89.29 Other chronic pain; Z23 Encounter for immunization; K21.9 Gastro-esophageal reflux disease without esophagitis; Z12.39 Encounter for other screening for malignant neoplasm of breast; E55.9 Vitamin D deficiency, unspecified | CPT/HCPCS: 80053; 80061; 82306; 84443; 85025 ==

== ENCOUNTER 2022-02-13 11:54 | Outpatient (CLI) | payer MEDICARE, MEDICAID, SELFPAY ==
--- NOTE | 2022-02-13 12:04 | XR_ITS ---
WS: [id number] SCREENING DEXA SCAN [employer] CLINICAL INFORMATION: M81.0 - Age-related osteoporosis without current patholog... COMPARISON: 2019 FINDINGS: The L1-L4 bone mineral density measures 1.024 g/cm2. This corresponds to a T score score of -1.3 and Z score of 0.3. Left femoral neck bone mineral density measures 0.661 g/cm2. This corresponds to a T score of -2.8 an d Z score of -1.2. Right femoral neck bone mineral density measures 0.672 g/cm2. This corresponds to a T score -2.7of an d Z score of -1.1. Mean femoral neck bone mineral density measures 0.666 g/cm2. This corresponds to a T score of -2.7 an d Z score of -1.2. XR/XR DEXA axial skeleton* 60210 IMPRESSION: Osteopenia lumbar spine. Osteoporosis femoral necks. Patient's FRAX calculated 10 year probability for major osteoporotic fracture i s 41.8 % and osteoporotic hip fracture is 22.6%. Bone mineral density lumbar spine has increased 9.4% since 2020 Bone mineral density in the femoral necks has decreased -0.1% since 2020
== END 2022-02-13 11:55 | disposition home or self-care (01) ==
LOC: RAD 11:56
PROVIDERS: PCP Family Medicine; Visit Provider Family Medicine
DX: M81.0 Age-related osteoporosis without current pathological fracture (principal); Z13.820 Encounter for screening for osteoporosis
CPT/HCPCS: 77080

== ENCOUNTER → 2022-02-18 10:00 | Outpatient (BNVA) | payer MEDICARE, MEDICAID, SELFPAY | PROVIDERS: PCP Family Medicine; Visit Provider Internal Medicine | DX: E04.1 Nontoxic single thyroid nodule (principal); M81.0 Age-related osteoporosis without current pathological fracture | CPT/HCPCS: 99214 ==

== ENCOUNTER 2022-04-15 15:16 | Outpatient (CLI) | payer MEDICARE, MEDICAID, SELFPAY ==
--- NOTE | 2022-04-15 15:00 | US_ITS ---
WS: [id number] THYROID ULTRASOUND HISTORY: Reevaluate nodules. COMPARISON: 01/21/2021, 03/13/2020 Right lobe: 1.7 cm x 1.6 cm x 3.6 cm (w x ap x l). Volume: 5.1 cm3. Normal size gland. Again noted are a few very small subcentimeter hypoechoic nodules. There is a slig htly larger hypoechoic nodule in the inferior gland which was not identified on the prior study. May have been present but not visualized. This nodule is 7 x 4 x 9 mm. Again very small in size and nonsp ecific. No echogenic foci. No particular concerning features. Left lobe: 2.2 cm x 2.3 cm x 4.8 cm (w x ap x l). Volume: 12.1 cm3. Mildly enlarged gland. Again noted is a nodule in the mid to lower gland which is nearly isoechoic to the gland. Mass is slightly hyperechoic. Mass measures 1.9 x 1.9 x 2.8 cm. Not increasing in size. Isthmus: 0.2 cm. US/US thyroid [id number] IMPRESSION: 1. Stable mass in the mid to lower LEFT thyroid lobe. No increase in size sinc e 03/13/2020. By history this is undergone a biopsy. 2. Subcentimeter nodules in the RIGHT thyroid.
== END 2022-04-15 15:17 | disposition home or self-care (01) ==
LOC: RAD 15:19
PROVIDERS: PCP Family Medicine; Visit Provider Internal Medicine
DX: E04.2 Nontoxic multinodular goiter (principal)
CPT/HCPCS: 76536

== ENCOUNTER → 2022-10-02 09:53 | Outpatient (BNVA) | payer MEDICARE, MEDICAID, SELFPAY | PROVIDERS: PCP Family Medicine; Visit Provider Nurse Practitioner Family | DX: M54.6 Pain in thoracic spine (principal); G89.29 Other chronic pain; I10 Essential (primary) hypertension; E55.9 Vitamin D deficiency, unspecified; K21.9 Gastro-esophageal reflux disease without esophagitis; M81.0 Age-related osteoporosis without current pathological fracture | CPT/HCPCS: 80053; 80061; 82306; 84443; 85025 ==

== ENCOUNTER → 2023-06-15 10:00 | Outpatient (BNVA) | payer MEDICARE, SELFPAY | PROVIDERS: PCP Family Medicine; Visit Provider Nurse Practitioner Family | DX: I10 Essential (primary) hypertension (principal); M54.6 Pain in thoracic spine; G89.29 Other chronic pain; E55.9 Vitamin D deficiency, unspecified; E04.1 Nontoxic single thyroid nodule; Z78.9 Other specified health status | CPT/HCPCS: 80053; 80061; 82306; 82607; 84443; 85025 ==

== ENCOUNTER 2023-06-26 09:51 | Outpatient (CLI) | payer MEDICARE, SELFPAY ==
--- NOTE | 2023-06-26 10:15 | US_ITS ---
WS: [id number] THYROID ULTRASOUND HISTORY: E04.1 - Nontoxic single thyroid nodule COMPARISON: 04/15/2022, 01/21/2021 Right lobe: 1.9 cm x 1.7 cm x 3.7 cm (w x ap x l). Volume: 5.5 cm3. Normal sized gland. There are a few very small nodules scattered throughout the gland. Vague hypoecho ic nodule in the inferior pole measures 0.9 x 0.7 x 1.3 cm. Similar to the prior study. No echogenic foci. Additional hypoechoic and colloid nodules. Left lobe: 2.5 cm x 2.4 cm x 4.4 cm (w x ap x l). Volume: 12.8 cm3. Enlarged thyroid secondary to a predominantly solid mass with a few cystic areas in the mid thyroid m easuring 2.3 x 2.1 x 3.2 cm. There is mild increased vascularity. This mass has not significantly inc reased in size. As per history this nodule has undergone a prior biopsy. Isthmus: 0.2 cm. IMPRESSION: 1. Stable hypoechoic nodule mid LEFT thyroid measuring 2.3 x 2.1 x 3.2 cm. As per history this is un dergone a prior biopsy and this is been stable over multiple prior years. 2. TI-RADS 2 nodules RIGHT thyroid.
== END 2023-06-26 09:52 | disposition home or self-care (01) ==
LOC: RAD 09:51
PROVIDERS: PCP Family Medicine; Visit Provider Nurse Practitioner Family
DX: E04.1 Nontoxic single thyroid nodule (principal)
CPT/HCPCS: 76536

== ENCOUNTER → 2023-12-08 15:41 | Outpatient (BNVA) | payer MEDICARE, SELFPAY | PROVIDERS: PCP Nurse Practitioner; Visit Provider Nurse Practitioner | DX: I10 Essential (primary) hypertension (principal); E04.1 Nontoxic single thyroid nodule | CPT/HCPCS: 80053; 80061; 84439; 84443; 84481; 86800 ==

== ENCOUNTER → 2024-01-19 10:11 | Outpatient (BNVA) | payer MEDICARE, SELFPAY | PROVIDERS: PCP Nurse Practitioner; Visit Provider Clinical Nurse Specialist Adult Health | DX: N30.01 Acute cystitis with hematuria (principal); R39.9 Unspecified symptoms and signs involving the genitourinary system | CPT/HCPCS: 81000; 87086 ==

== ENCOUNTER → 2024-06-16 10:59 | Outpatient (BNVA) | payer MEDICARE, SELFPAY | PROVIDERS: PCP Nurse Practitioner; Visit Provider Nurse Practitioner | DX: I10 Essential (primary) hypertension (principal); E55.9 Vitamin D deficiency, unspecified; E04.1 Nontoxic single thyroid nodule | CPT/HCPCS: 80053; 80061; 82306; 84443 ==

== ENCOUNTER → 2024-11-09 16:26 | Outpatient (BNVA) | payer MEDICARE, SELFPAY | PROVIDERS: PCP Nurse Practitioner; Visit Provider Nurse Practitioner | DX: I10 Essential (primary) hypertension (principal); E04.1 Nontoxic single thyroid nodule; E55.9 Vitamin D deficiency, unspecified | CPT/HCPCS: 80053; 82306; 82607; 84439; 84443; 84481; 85025 ==

== ENCOUNTER 2025-01-03 12:21 | Outpatient (CLI) | payer MEDICARE, SELFPAY ==
--- NOTE | 2025-01-03 15:00 | USCV_ITS ---
Rukhsana Hernandez Age: 74 Gender: F : 1950 Exam Date: 01/03/2025 12:46 Ordering Phys: Cody Carr Technologist: Exam Location: [facility] – [place] Indication: cp sob ? murmur BP: 135 / 75 HR: 61 Rhythm: Sinus Technical Quality: Adequate MEASUREMENTS (Male / Female) Normal Values 2D ECHO LV Diastolic Diameter PLAX 3.1 cm 4.2 - 5.9 / 3.9 - 5.3 cm IVS Diastolic Thickness 1.3 cm 0.6 - 1.0 / 0.6 - 0.9 cm IVS Systolic Thickness 1.7 cm LVPW Diastolic Thickness 1.2 cm 0.6 - 1.0 / 0.6 - 0.9 cm LVPW Systolic Thickness 1.3 cm LVOT Diameter 2.1 cm LV Ejection Fraction 2D Teich 64.2 % LV Ejection Fraction MOD 4C 67.2 % LV Ejection Fraction MOD 2C 65.3 % LV Ejection Fraction 2C AL 66.5 % LA Diameter 3.4 cm RA Systolic Volume 4C AL 78.5 ml RA Systolic Volume 4C MOD 78.1 ml Aorta at Sinotubular Diameter 3.0 cm IVC Diameter 1.8 cm M-MODE LA Ao Ratio MM 1.2 AV Cusp Separation MM 2.2 cm DOPPLER AV Peak Velocity 154.0 cm/s LVOT Peak Velocity 83.0 cm/s AV Area Cont Eq vti 1.8 cm squared AV Area Cont Eq pk 1.8 cm squared MV Peak Velocity 130.0 cm/s MV Area PHT 3.6 cm squared Mitral E to A Ratio 1.0 TV Peak Velocity 160.5 cm/s TR Peak Velocity 215.0 cm/s TR Peak Gradient 18.5 mmHg TV Peak E Velocity 74.0 cm/s PV Peak Velocity 111.0 cm/s FINDINGS Left Ventricle Normal left ventricular size, systolic function and wall thickness, with no regional wall motion abnormalities. Left ventricular ejection fraction is estimated at 60 %. Grade I/IV diastolic dysfunction (abnormal relaxation filling pattern), normal to mildly elevated filling pressures. Right Ventricle Normal right ventricular size and systolic function. Right Atrium Normal right atrial size. Left Atrium Normal left atrial size. IA Septum Normal appearance of the interatrial septum. Mitral Valve Mildly thickened mitral valve. No mitral valve stenosis. Trace mitral valve regurgitation. Aortic Valve Mild aortic valve calcification. No aortic valve stenosis. Trace aortic valve regurgitation. Tricuspid Valve Trace tricuspid valve regurgitation. Pulmonic Valve Normal pulmonic valve structure. No pulmonic valve stenosis or regurgitation. Pericardium No pericardial effusion. Aorta Normal diameter of the aortic root and ascending thoracic aorta. IVC Normal IVC diameter. CONCLUSIONS Normal left ventricular size, systolic function and wall thickness, with no regional wall motion abnormalities. Left ventricular ejection fraction is estimated at 60 %. Grade I/IV diastolic dysfunction (abnormal relaxation filling pattern), normal to mildly elevated filling pressures. There is no pericardial effusion. No significant valvular abnormalities. Right atrial pressure is around 5 mm of mercury. Shira Urias MD (Electronically Signed) Final Date: 04 January 2025 14:20 S
== END 2025-01-03 12:22 | disposition home or self-care (01) ==
LOC: RAD 12:23
PROVIDERS: PCP Nurse Practitioner; Visit Provider Nurse Practitioner
DX: R53.83 Other fatigue (principal); I50.30 Unspecified diastolic (congestive) heart failure
CPT/HCPCS: 93306

== ENCOUNTER 2025-02-13 17:54 | Emergency (ER) | payer MEDICARE, SELFPAY ==
[2025-02-13 17:59] VITALS: BP 115/75; PULSE 75; RESP 16; TEMP 36.4; O2SAT 98; BMI 23.0
--- NOTE | 2025-02-13 18:39 | XRR_ITS ---
PROCEDURE INFORMATION: Exam: XR Chest Exam date and time: 02/13/2025 7:59 PM Age: 74 years old Clinical indication: Other: Weakness TECHNIQUE: Imaging protocol: Radiologic exam of the chest. Views: 1 view. COMPARISON: CR XR chest 1V portable [id number] 11/11/2021 10:53 AM FINDINGS: Lungs: A few scattered nonspecific although chronic appearing pulmonary strands. Pleural spaces: Unremarkable. No pleural effusion. No pneumothorax. Heart/Mediastinum: Unremarkable. No cardiomegaly. Vasculature: Aortic atherosclerosis. Bones/joints: Mild degenerative changes of the AC joints. XR/XR chest 1V portable [id number] IMPRESSION: No definite acute infiltrate or effusion.
[2025-02-13 20:06] LABS: Hematocrit 45.8 % (36-47); Hemoglobin 15.70 g/dL (11.27-16.99); Mean Corpuscular HGB Conc 34.3 g/dL (30-55); Mean Corpuscular Hemoglobin 30.8 pg (27-33); Mean Corpuscular Volume 90.0 fl (85-98); Nucleated Red Blood Cells % 0 %; Platelet Count 133 10^3/cmm (157-399); Red Blood Count 5.09 10^6/uL (3.85-5.65); White Blood Count 21.43 10^3/uL (3.29-11.43)
--- NOTE | 2025-02-13 20:23 | W.ED.WEAKNES ---
HPI - Weakness General: Chief complaint: Weakness Stated complaint: weakness Time Seen by Provider: 02/13/25 19:36 History of Present Illness: Patient is a 74-year-old female that presented to the emergency day due to 2 weeks of worsening weakness. Patient just feels like she is going to fall out with her weakness. She has fatigue, weakness. No fever. No dysuria. Mild shortness of breath. No nausea, no vomiting. No sick contact. She states this is lingering. She thought she would be improved by now. No abdominal pain, no diarrhea. Associated symptoms: Denies chest pain, easy bruising, fever(s) or headache(s) Related Data Home Medications ?Medication ?Instructions ?Recorded ?Confirmed qblkvtlctzza-[id number] tablet 1 tab PO DAILY 02/08/20 02/08/25 Previous Rx's ?Medication ?Instructions ?Recorded mupirocin 2 % topical ointment 1 applic topical BID #15 grams 01/19/24 acyclovir 200 mg capsule 200 mg PO DAILY #30 caps 11/30/24 amlodipine 5 mg tablet 5 mg PO DAILY #30 tabs 11/30/24 calcium 500 mg (as 1 tab PO .2 times day #60 tabs 11/30/24 carbonate)-vitamin D3 15 mcg (600 unit) tablet cholecalciferol (vitamin D3) 125 125 mcg PO DAILY #30 caps 11/30/24 mcg (5,000 unit) capsule levothyroxine 25 mcg tablet 12.5 mcg (1/2 x 25 mcg) PO DAILY 11/30/24 #15 tabs meloxicam 15 mg tablet 15 mg PO DAILY #30 tabs 11/30/24 omeprazole 20 mg capsule,delayed 40 mg (2 x 20 mg) PO DAILY #60 caps 11/30/24 release diclofenac sodium 1 % topical gel 2 g topical QID #100 grams 12/14/24 (Voltaren Arthritis Pain) propranolol 10 mg tablet 10 mg PO BID #60 tabs 02/08/25 doxycycline hyclate 100 mg capsule 100 mg PO BID 14 days #28 caps 02/13/25 Allergies Allergy/AdvReac Type Severity Reaction Status Date / Time No Known Allergies Allergy Verified 02/08/25 14:29 Review of Systems Const: Reports: body aches, change in appetite, fatigue and malaise; Denies: fever(s) or change in sleep pattern Eyes: Denies: change in vision or blurry vision ENMT: Reports: mouth pain; Denies: odynophagia, hoarseness, nasal congestion or post nasal drip Card: Reports: other (Hypertension ); Denies: chest pain or swelling of feet/ankles Resp: Denies: dyspnea or non-productive cough GI: Denies: abdominal pain, dysphagia, change in bowel habits or hematochezia : Denies: difficulty voiding or hematuria Musc: Denies: neck pain, back pain or joint stiffness Skin/Breast: Denies: rash or pruritus Neuro: Denies: headache(s), difficulty walking or dizziness Psych: Denies: anxiety, depression, irritability or suicidal ideation Sunny/Lymph: Denies: easy bruising or enlarged lymph nodes All/Imm: Denies: seasonal rhinorrhea PFSH ED PFSH: Medical History (Updated 02/13/25 @ 22:51 by DRE Moore) Neuropathy, thoracic (radicular) Thoracic neuralgia Osteoporosis Hip porosis and lumbar penia Vitamin D deficiency COVID-19 Pleurodynia Essential (primary) hypertension Chronic thoracic back pain Encounter for long-term use of opiate analgesic History of hepatitis Generalized epilepsy Chronic mitral valve regurgitation Opioid contract exists Surgical History S/p bilateral carpal tunnel release Status post wrist surgery left wrist 2008 History of tonsillectomy and adenoidectomy Family History Mother Hypertension Osteoporosis Social History Smoking and tobacco/nicotine status: never used tobacco/nicotine Second hand smoke exposure: No Alcohol intake: never Substance/Drug Use: never Adopted: No Caregiver/support person: No Lives independently: Yes Household members: none Housing: House Marital status: / service: No Current occupational status: retired Do you think of yourself as: Straight/Heterosexual Current gender identity: Female Special flavia needs: No Physical Exam Const: GENERAL APPEARANCE: cooperative and well kempt NUTRITIONAL APPEARANCE: thin (BMI 24.3%) ORIENTATION/CONSCIOUSNESS: Yes oriented to person, Yes oriented to place and Yes oriented to time HENMT: COMMON NORMALS: external ears normal and Normal nasal mucous membranes and turbinates present NOSE: Normal nasal mucous membranes and turbinates present and No nasal discharge present EXTERNAL EAR: Yes external ears normal MOUTH: Normal oral and palatal mucosa present and tongue abnormal (tender right lateral ) TEETH & GINGIVA: Yes multiple restorations Eye: COMMON NORMALS: Equal, round and reactive pupils present and conjunctivae normal EYELID: eyelids normal CONJUNCTIVA: Yes conjunctivae normal PUPIL: Yes Equal, round and reactive pupils present Neck/C-Spine: GENERAL: Yes normal visual inspection THYROID: diffusely enlarged and nontender CERVICAL SPINE: Yes cervical ROM normal Lymph: LYMPHATIC: no lymphadenopathy noted Chest: CHEST: Yes Symmetrical chest wall rise Resp: COMMON NORMALS: clear to auscultation bilaterally EFFORT & INSPECTION: Yes able to speak in complete sentences AUSCULTATION: clear to auscultation bilaterally Cardio: COMMON NORMALS: regular rate, regular rhythm and No murmurs present (Cardio) RATE: regular rate RHYTHM: regular rhythm HEART SOUNDS: no murmurs GI: COMMON NORMALS: Normal to inspection, nondistended, normoactive bowel sounds present and Soft to palpation AUSCULTATION: Yes normoactive bowel sounds PALPATION: Yes Soft to palpation and No Tenderness to palpation present (GI) Back/Pelvis: THORACIC SPINE/UPPER BACK: Yes thoracic spinal tenderness (pain around right mid back no skin irritation) LUMBAR SPINE/LOWER BACK: Yes paraspinal muscle tenderness Extremity: GENERAL: No edema and Yes other findings (Equal strength and range of motion.) Neuro: SENSORIUM/ORIENTATION: Yes oriented to person, Yes oriented to place and Yes oriented to time SPEECH: speech normal GAIT: Yes Normal gait present MOTOR EXAM: No Tremors during motor activity present Psych: COMMON NORMALS: speech normal APPEARANCE: Yes well kempt ATTITUDE: Yes engaged SPEECH: Yes normal speech MOOD & AFFECT: Yes elevated mood and Yes anxious THOUGHT CONTENT: No Suicidality present and No Homicidality present Skin: GENERAL SKIN EXAM: no ecchymo and no erythema Course Vital Signs: Vital signs: Vital Signs Temperature 97.5 F L 02/13/25 17:59 Pulse Rate 78 02/13/25 22:15 Respiratory Rate 16 02/13/25 17:59 Blood Pressure 123/65 02/13/25 22:15 Pulse Oximetry 98 02/13/25 22:15 Oxygen Delivery Me thod Room Air 02/13/25 22:15 MDM - Weakness Medical Decision Making Patient is a 74-year-old female with worsening illness over the last 2 weeks. She has quite significant white blood cell count, with neutrophilia, and mild thrombocytopenia. She also has mild hyponatremia. She is negative on her urinalysis, procalcitonin, and chest x-ray. Blood cultures are pending. She does not have diarrhea, or abscess. My concern is tickborne illness. There is not an ehrlichia PCR through [facility], or the [facility], and therefore additional studies would not be warranted on the tick panel. Since there is significant change, I would like her to see hematology, and return to ED if she needs to for further decision-making. I am concerned about additional differentials including oncological in nature, potentially needing flow cytometry, and/or bone marrow. manager of housekeeping consultation has been made. If patient does get better with the doxycycline, most likely can cancel her appointment at that time. Medical Records I reviewed the patient's medical records. Lab Data I reviewed the patient's lab results. 02/13/25 19:49 02/13/25 19:49 Radiology Impressions Chest X-Ray 02/13/25 18:39 IMPRESSION: No definite acute infiltrate or effusion. Laboratory Results WBC 21.43 10^3/uL (3.29-11.43) H 02/13/25 19:49 RBC 5.09 10^6/uL (3.85-5.65) 02/13/25 19:49 Hgb 15.70 g/dL (11.27-16.99) 02/13/25 19:49 Hct 45.8 % (36-47) 02/13/25 19:49 MCV 90.0 fl (85-98) 02/13/25 19:49 MCH 30.8 pg (27-33) 02/13/25 19:49 MCHC 34.3 g/dL (30-55) 02/13/25 19:49 RDW 12.4 % (12.1-15.1) 02/13/25 19:49 Plt Count 133 10^3/cmm (157-399) L 02/13/25 19:49 MPV 9.3 fL (7.4-10.4) 02/13/25 19:49 Neut % (Auto) 75.7 % 02/13/25 19:49 Lymph % (Auto) 18.1 % 02/13/25 19:49 Humphreys % (Auto) 4.2 % 02/13/25 19:49 Eos % (Auto) 0.8 % 02/13/25 19:49 Baso % (Auto) 0.1 % 02/13/25 19:49 Neut # (Auto) 16.22 10^3/uL (1.8-7.7) H 02/13/25 19:49 Lymph # (Auto) 3.9 10^3/uL (0.8-4.8) 02/13/25 19:49 Humphreys # (Auto) 0.9 10^3/uL (0.2-0.9) 02/13/25 19:49 Eos # (Auto) 0.2 10^3/uL (0.0-0.8) 02/13/25 19:49 Baso # (Auto) 0.0 10^3/uL (0.0-0.1) 02/13/25 19:49 Nucleated RBC % (auto) 0 % 02/13/25 19:49 Nucleated RBCs # 0.0 /100WBC 02/13/25 19:49 Sodium 132 mmol/L (136-145) L 02/13/25 19:49 Potassium 4.7 mmol/L (3.5-5.1) 02/13/25 19:49 Chloride 97 mmol/L (98-107) L 02/13/25 19:49 Carbon Dioxide 27 mmol/L (22-29) 02/13/25 19:49 Anion Gap 12.7 (5-19) 02/13/25 19:49 BUN 27 mg/dL (8-23) H 02/13/25 19:49 Creatinine 0.7 mg/dL (0.5-0.9) 02/13/25 19:49 GFR Calculation Not Reportable 02/13/25 19:49 Glucose 104 mg/dL (65-115) 02/13/25 19:49 Calculated Osmolality 279 mOsm/kg (285-295) L 02/13/25 19:49 Lactic Acid 1.4 mmol/L (0.5-2.2) 02/13/25 19:49 Calcium 8.2 mg/dL (8.5-10.5) L 02/13/25 19:49 Total Bilirubin 0.8 mg/dL (0.15-1.2) 02/13/25 19:49 AST 18 U/L (0-32) 02/13/25 19:49 ALT 52 U/L (0-33) H 02/13/25 19:49 Alkaline Phosphatase 68 U/L (35-105) 02/13/25 19:49 C-Reactive Protein 4.7 mg/L (0.0-4.9) 02/13/25 19:49 Total Protein 5.6 g/dL (6.6-8.7) L 02/13/25 19:49 Albumin 3.5 g/dL (3.5-5.2) 02/13/25 19:49 Globulin 2.1 g/dL (1.3-4.6) 02/13/25 19:49 Procalcitonin 0.10 ng/mL (0-0.5) 02/13/25 19:49 Urine Color Yellow (Yellow) 02/13/25 21:32 Urine Appearance Clear (CLEAR) 02/13/25 21:32 Urine pH 6.5 (5-7) 02/13/25 21:32 Ur Specific [place] 1.010 (1.005-1.030) 02/13/25 21: Urine Protein Negative (Negative) 02/13/25 21: Urine Glucose (UA) Negative (Normal) 02/13/25 21:32 Urine Ketones Negative (Negative) 02/13/25 21:32 Urine Blood Negative (Negative) 02/13/25 21: Urine Nitrate Negative (Negative) 02/13/25 21: Urine Bilirubin Negative (Negative) 02/13/25 21:32 Urine Urobilinogen 0.2 mg/dL (Negative) 02/13/25 21:32 Ur Leukocyte Esterase Negative (Negative) 02/13/25 21: Urine RBC 0-2 /hpf (0-2) 02/13/25 21:32 Urine WBC 0-5 /hpf (0-5) 02/13/25 21:32 Ur Squamous Epith Cells 0-5 /hpf (0-5) 02/13/25 21:32 Amorphous Sediment Not Reportable 02/13/25 21:32 Urine Bacteria None seen /hpf (NONE) 02/13/25 21:32 Hyaline Casts 1.21 /lpf 02/13/25 21:32 All radiology interpretation(s) finalized by discharge Discharge Plan Discharge Patient Disposition: Home Clinical Impression: Tick-borne disease, Leukocytosis, Thrombocytopenia, Acute hyponatremia Condition: Stable Prescriptions: New doxycycline hyclate 100 mg capsule 100 mg PO BID 14 Days Qty: 28 0RF No Action [id number] Tablet 1 tab PO DAILY mupirocin 2 % ointment 1 applic topical BID Qty: 15 0RF diclofenac sodium [Voltaren Arthritis Pain] 1 % gel 2 g topical QID Qty: 100 2RF Rx Instructions: apply to single elbow, wrist or hand; for hand includes palm/fingers/back of hand acyclovir 200 mg capsule 200 mg PO DAILY Qty: 30 5RF amlodipine 5 mg tablet 5 mg PO DAILY Qty: 30 5RF cholecalciferol (vitamin D3) 125 mcg (5,000 unit) capsule 125 mcg PO DAILY Qty: 30 5RF calcium carbonate-vitamin D3 500 mg-15 mcg (600 unit) tablet 1 tab PO .2 times day Qty: 60 5RF levothyroxine 25 mcg tablet 12.5 mcg PO DAILY Qty: 15 5RF meloxicam 15 mg tablet 15 mg PO DAILY Qty: 30 5RF omeprazole 20 mg capsule,delayed release(DR/EC) 40 mg PO DAILY Qty: 60 5RF propranolol 10 mg tablet 10 mg PO BID Qty: 60 0RF Discharge Orders: Discharge ED (Routine); Ordered 02/13/25 Ordered By: Radha Pimentel Referrals: Cody Carr FNP-C [Primary Care Provider, Family Practice] Harpreet Rob MD [Hospitalist, Oncology] - 4-7 days Clinical Impression: Tick-borne disease; Leukocytosis Discharge Diet: Usual diet Discharge Activity: Resume usual activity Patient Instructions: Patient Portal & [place] Instructions, Tick Bite (ED), Viral Syndrome (ED) Activity Restrictions/Additional Instructions: - Referral to case management has been made for referral to hematology - We do not have the proper tick panel at this facility, or the outlying facilities do not have this either, therefore I am going to treat you as it is tickborne, and have you follow-up with hematology for repeat labs. - Your referral as above. You can call the office, and note your referral, and make an appointment yourself tomorrow. - Doxycycline was sent to the pharmacy: For tickborne illness. Make sure you eat food when you take this or you will have a side effect of nausea. Avoid the sun. Avoid milk products just while you take it twice daily. You can have milk at other times. Take a probiotic or daily active culture yogurt to avoid infectious diarrhea Thank you for choosing [facility] for your healthcare needs today. You have been screened and evaluated and felt safe for discharge. Health conditions do change or evolve sometimes and as such it is important that you follow up with your Primary Doctor to be re checked, 3-5 days is a general good time frame for follow up. You are always welcome to return to the ED for re assessment if your symptoms are worsening or you have new concerns Print Language: Belgian Coding Level of Care Code ED Chief Embalmer for Meghna Byrne
[2025-02-13 20:29] LABS: Lactic Sepsis W/Reflex 1.4 mmol/L (0.5-2.2)
[2025-02-13 20:32] LABS: Alanine Aminotransferase 52 U/L (0-33); Albumin Level 3.5 g/dL (3.5-5.2); Alkaline Phosphatase 68 U/L (35-105); Anion Gap 12.7 (5-19); Aspartate Amino Transferase 18 U/L (0-32); Blood Urea Nitrogen 27 mg/dL (8-23); Calcium 8.2 mg/dL (8.5-10.5); Carbon Dioxide 27 mmol/L (22-29); Chloride 97 mmol/L (98-107); Creatinine Clr Calc Pharmacy 52.7818; Globulin 2.1 g/dL (1.3-4.6); Glucose 104 mg/dL (65-115); Osmolality Calculated 279 mOsm/kg (285-295); Potassium 4.7 mmol/L (3.5-5.1); Sodium 132 mmol/L (136-145); Total Protein 5.6 g/dL (6.6-8.7)
[2025-02-13 20:35] VITALS: BP 139/76; PULSE 69; O2SAT 95
[2025-02-13 20:54] LABS: Procalcitonin 0.10 ng/mL (0-0.5)
[2025-02-13] MEDS: cefTRIAXone 2,000 mg SDV 2000 MG IVP (21:06)
[2025-02-13 22:14] LABS: Glucose Urine UA Negative (Normal); Nitrate Urine Negative (Negative); Specific Gravity, Urine 1.010 (1.005-1.030)
[2025-02-13 22:15] VITALS: BP 123/65; PULSE 78; O2SAT 98
[2025-02-13 22:30] VITALS: BP 106/61; PULSE 88; O2SAT 99
[2025-02-13 22:50] LABS: Respiratory Syncytial Virus Ce NEGATIVE (Negative); SARS-CoV-2 PCR NEGATIVE (Negative)
== END 2025-02-13 23:13 | disposition home or self-care (01) ==
PROVIDERS: Emergency Medicine; Emergency Provider Physician Assistant; PCP Nurse Practitioner
DX: A84.9 Tick-borne viral encephalitis, unspecified (principal); D72.829 Elevated white blood cell count, unspecified; D69.6 Thrombocytopenia, unspecified; E87.1 Hypo-osmolality and hyponatremia; I10 Essential (primary) hypertension
CPT/HCPCS: 36415; 71045; 80053; 81001; 83605; 84145; 85025; 86140; 87040; 87637; 96374; 99284; J0696; J7030; J9999

== ENCOUNTER 2025-02-21 15:14 | Oncology outpatient (recurring) (ONCR) | payer MEDICARE, SELFPAY | END 2025-02-26 23:59 | disposition home or self-care (01) | PROVIDERS: PCP Nurse Practitioner; Visit Provider Internal Medicine Medical Oncology | DX: Z53.9 Procedure and treatment not carried out, unspecified reason (principal); D72.829 Elevated white blood cell count, unspecified; Z79.52 Long term (current) use of systemic steroids | CPT/HCPCS: 99205 ==

== ENCOUNTER 2025-03-07 12:28 | Oncology outpatient (recurring) (ONCR) | payer MEDICARE, SELFPAY ==
[2025-03-07 13:03] LABS: Hematocrit 36.1 % (36-47); Hemoglobin 12.00 g/dL (11.27-16.99); Mean Corpuscular HGB Conc 33.2 g/dL (30-55); Mean Corpuscular Hemoglobin 30.3 pg (27-33); Mean Corpuscular Volume 91.2 fl (85-98); Platelet Count 430 10^3/cmm (157-399); Red Blood Count 3.96 10^6/uL (3.85-5.65); White Blood Count 8.79 10^3/uL (3.29-11.43)
[2025-03-07 13:20] LABS: Alanine Aminotransferase 28 U/L (0-33); Albumin Level 3.7 g/dL (3.5-5.2); Alkaline Phosphatase 118 U/L (35-105); Anion Gap 13.0 (5-19); Aspartate Amino Transferase 22 U/L (0-32); Blood Urea Nitrogen 15 mg/dL (8-23); Calcium 8.7 mg/dL (8.5-10.5); Carbon Dioxide 27 mmol/L (22-29); Chloride 99 mmol/L (98-107); Globulin 2.4 g/dL (1.3-4.6); Glucose 127 mg/dL (65-115); Osmolality Calculated 282 mOsm/kg (285-295); Potassium 4.0 mmol/L (3.5-5.1); Sodium 135 mmol/L (136-145); Total Protein 6.1 g/dL (6.6-8.7)
[2025-03-07 14:00] LABS: Slide Review Slide Review Perform
[2025-03-07 14:02] LABS: Absolute Segmented Neutrophil 3.9 10/cmm (1.6-7.1); Band Neutrophils Absolute 1.1 10^3/cmm (0.0-1.2); Total Cells Counted 100 (0-100)
[2025-03-07 14:03] LABS: Atypical Lymphs 0.0 % (0-5)
== END 2025-03-29 23:59 | disposition home or self-care (01) ==
LOC: ONCMED 12:31
PROVIDERS: PCP Nurse Practitioner; Visit Provider Internal Medicine Medical Oncology
DX: D72.829 Elevated white blood cell count, unspecified (principal); Z79.52 Long term (current) use of systemic steroids
CPT/HCPCS: 36415; 80053; 85007; 85025; 99213

== ENCOUNTER → 2025-03-10 09:53 | Outpatient (BNVA) | payer MEDICARE, SELFPAY | PROVIDERS: PCP Nurse Practitioner; Visit Provider Clinical Nurse Specialist Adult Health | DX: D72.829 Elevated white blood cell count, unspecified (principal); E55.9 Vitamin D deficiency, unspecified; R53.83 Other fatigue; M81.0 Age-related osteoporosis without current pathological fracture | CPT/HCPCS: 81000; 82306; 82607 ==